=== PATIENT | female | born 1960 | race African-American/Black ===

== ENCOUNTER 2016-10-18 20:21 | Emergency (ER) | payer MEDICARE, MEDICAID ==
[~2016-10-18] VITALS: Ht 160 cm; Wt 88.0 kg
[~2016-10-18 20:21] MED LIST: ALPHAGAN BOTHEYE; AMBIEN PO; CHOL100026 PO; GLIM4TAB2 PO; INSLAN SQ; NOVOLOG SUBCUT; SITA1TAB8 PO; VALS1TAB6 PO; VITA1CAP64 PO
[2016-10-18 20:26] VITALS: BP 150/68
[2016-10-18] MEDS ORDERED: IPRATROPIUM/ALBUTEROL 0.5-3(2.5)MG/3ML NEB HHN ONE (22:45)
[2016-10-19] MEDS ORDERED: PREDNISONE 20MG TABLET PO ONE
== END 2016-10-19 00:26 | disposition home or self-care (01) ==
LOC: ER 20:22
DX: J20.9 Acute bronchitis, unspecified (principal); E11.9 Type 2 diabetes mellitus without complications; I10 Essential (primary) hypertension; M10.9 Gout, unspecified; Z90.710 Acquired absence of both cervix and uterus
CPT/HCPCS: 94640; 99283; J7620

== ENCOUNTER 2017-01-03 14:43 | Inpatient (IN) | payer MEDICARE, MEDICAID ==
[~2017-01-03] VITALS: Ht 160 cm; Wt 91.6 kg
[~2017-01-03 14:43] MED LIST changes: -CHOL100026 PO; +CHOL100044 PO
[2017-01-03] MEDS ORDERED: ONDANSETRON HCL 4MG/2ML VIAL IV STA (15:04)
[2017-01-03] MEDS ORDERED: KETOROLAC 30MG/ML VIAL IV STA (15:04)
[2017-01-03] MEDS ORDERED: ASPIRIN 325MG EC TABLET PO ONE (15:15)
[2017-01-03 15:41] LABS: *AMPHETAMINES SCREEN URINE NEGATIVE (NEGATIVE); *BARBITURATES SCREEN URINE NEGATIVE (NEGATIVE); *BENZODIAZEPINES SCREEN URINE NEGATIVE (NEGATIVE); *COCAINE SCREEN URINE NEGATIVE (NEGATIVE); CANNABINOID URINE SCREEN NEGATIVE (NEGATIVE); METHADONE URINE SCREEN NEGATIVE (NEGATIVE); OPIATES URINE SCREEN NEGATIVE (NEGATIVE); PHENCYCLIDINE URINE SCREEN NEGATIVE (NEGATIVE)
[2017-01-03 15:48] LABS: CHLORIDE 107 mEq/L (98-107)
[2017-01-03 15:49] LABS: INR 1.1; PARTIAL THROMBOPLASTIN TIME 25.1 sec (24.0-34.0); PROTHROMBIN TIME 11.3 sec
[2017-01-03 15:50] LABS: HEMATOCRIT. 34.4 % (36.0-48.0); HEMOGLOBIN. 11.1 g/dL (12.0-16.0); MEAN CORPUSCULAR HEMOGLOBIN 24.3 pg (28.0-32.0); MEAN CORPUSCULAR VOLUME 75.1 fL (81.0-99.0); PLATELET 342 x1000/uL (130-400); RED BLOOD CELL COUNT 4.58 mill/uL (4.2-5.4); RED CELL DISTRIBUTION WIDTH 17.9 % (11.6-14.6)
[2017-01-03 15:53] LABS: CARBON DIOXIDE 28 mEq/L (21-32)
[2017-01-03 15:58] LABS: TROPONIN I < 0.02 ng/mL (0.00-0.04)
[2017-01-03 17:11] LABS: PLATELET ESTIMATE NORMAL
[2017-01-03] MEDS ORDERED: CYCL30DR EACHEYE (20:40)
[2017-01-03] MEDS ORDERED: CLON0.2T PO (20:40)
[2017-01-03] MEDS ORDERED: ATOR20TA PO (20:40)
[2017-01-03] MEDS ORDERED: ASPI-1159 PO (20:40)
[2017-01-03] MEDS ORDERED: PIOG30TA10 PO (20:42)
[2017-01-03] MEDS ORDERED: KETOROLAC 30MG/ML VIAL IV NR (22:00)
[2017-01-03] MEDS ORDERED: IPRATROPIUM/ALBUTEROL 0.5-3(2.5)MG/3ML NEB INH PRN (23:15)
[2017-01-03] MEDS ORDERED: DIPHENHYDRAMINE 50MG/ML VIAL IV PRN (23:15)
[2017-01-03] MEDS ORDERED: MAGNESIUM/ALUMINUM HYDROXIDE/SIMETHICONE 30ML UDC PO PRN (23:15)
[2017-01-03] MEDS ORDERED: DEXTROSE 50% WATER 50ML SYRINGE IV PRN (23:15)
[2017-01-03] MEDS ORDERED: HYDROCODONE/ACETAMINOPHEN 5/325MG TABLET PO PRN (23:15)
[2017-01-03] MEDS ORDERED: CLONIDINE 0.1MG TABLET PO PRN (23:15)
[2017-01-03] MEDS ORDERED: ONDANSETRON HCL 4MG/2ML VIAL IV PRN (23:15)
[2017-01-03] MEDS ORDERED: ACETAMINOPHEN 325MG TABLET PO PRN (23:15)
[2017-01-04] MEDS ORDERED: REGADENOSON 0.4 MG/5 ML IV NR
[2017-01-04] MEDS: SODIUM CHLORIDE 0.9% INJ 3ML FLUSH IVF SCH ×2 (05:35→11:09)
[2017-01-04] MEDS ORDERED: GLIMEPIRIDE 4MG TABLET PO SCH (07:40)
[2017-01-04] MEDS: BLOOD SUGAR DIAGNOSTIC STRIP TEST SCH ×2 (07:40→12:40)
[2017-01-04] MEDS ORDERED: PIOGLITAZONE 30MG TABLET PO SCH (09:00)
[2017-01-04] MEDS ORDERED: ASPIRIN 81MG EC TABLET PO SCH (09:00)
[2017-01-04] MEDS ORDERED: CHOLECALCIFEROL (D3) 1000 UNIT TABLET PO SCH (09:00)
[2017-01-04] MEDS ORDERED: REGADENOSON 0.4 MG/5 ML IV ONE (09:21)
[2017-01-04] MEDS ORDERED: METOPROLOL TARTRATE 25MG TABLET PO SCH (11:00)
[2017-01-04] MEDS: INSULIN LISPRO 100 UNITS/ML SUBCUT SCH ×2 (11:25→13:10)
[2017-01-04 15:04] VITALS: BP 131/74
[2017-01-04] MEDS ORDERED: ATORVASTATIN CALCIUM 20MG TABLET PO SCH (21:00)
== END 2017-01-04 15:32 | disposition home or self-care (01) | DRG 206 ==
LOC: ER 14:44 → 7WST 18:06 → ENRESERV 18:25
PROVIDERS: ADMIT Internal Medicine; ATTEND Internal Medicine
DX: M94.0 Chondrocostal junction syndrome [Tietze] (principal); I10 Essential (primary) hypertension; H40.9 Unspecified glaucoma; E11.9 Type 2 diabetes mellitus without complications; G89.29 Other chronic pain; M54.5 Low back pain; Z90.710 Acquired absence of both cervix and uterus; Z87.11 Personal history of peptic ulcer disease; Z85.9 Personal history of malignant neoplasm, unspecified; Z82.49 Family history of ischemic heart disease and other diseases of the circulatory system; Z79.899 Other long term (current) drug therapy; Z79.4 Long term (current) use of insulin; K29.70 Gastritis, unspecified, without bleeding
CPT/HCPCS: 36415; 71010; 78452; 80053; 80305; 82962; 83036; 83690; 83880; 84484; 85025; 85610; 85730; 93005; 93017; 93306; 96374; 96375; 99285; A9500; J1815; J1885; J2405; J2785

== ENCOUNTER 2018-01-12 21:16 | Emergency (ER) | payer MEDICARE, MEDICAID ==
[~2018-01-12] VITALS: Ht 160 cm; Wt 96.0 kg
[~2018-01-12 21:16] MED LIST changes: +ASPI-1159 PO; +ATOR20TA PO; +CLON0.2T PO; +CYCL30DR EACHEYE; +PIOG30TA10 PO
[2018-01-12] MEDS ORDERED: METHYLPREDNISOLONE SOD SUCC 125 MG/2 ML VIAL IV STA (22:27)
[2018-01-12] MEDS ORDERED: IPRATROPIUM BROMIDE (0.02%) 0.5MG/2.5ML NEB HHN STA (22:27)
[2018-01-12] MEDS ORDERED: ALBUTEROL (0.083%) 2.5MG/3ML NEB HHN STA ×2 (22:27→23:55)
[2018-01-13 01:38] VITALS: BP 110/55
== END 2018-01-13 01:39 | disposition home or self-care (01) ==
LOC: ER 21:16
DX: J45.901 Unspecified asthma with (acute) exacerbation (principal); E11.9 Type 2 diabetes mellitus without complications; I10 Essential (primary) hypertension; Z79.4 Long term (current) use of insulin; Z79.82 Long term (current) use of aspirin
CPT/HCPCS: 71045; 94640; 96374; 99284; J2930; J7611; 99285

== ENCOUNTER 2019-02-06 19:26 | Emergency (ER) | payer MEDICARE, MEDICAID ==
[~2019-02-06] VITALS: Ht 160 cm; Wt 95.0 kg
[~2019-02-06 19:26] MED LIST changes: -ASPI-1159 PO; +ASPI-1393 PO
[2019-02-06] MEDS ORDERED: ACETAMINOPHEN 500MG TABLET PO ONE (23:15)
[2019-02-07 01:52] VITALS: BP 116/72
== END 2019-02-07 01:56 | disposition home or self-care (01) ==
LOC: ER 19:26
DX: M79.675 Pain in left toe(s) (principal); J45.909 Unspecified asthma, uncomplicated; E11.9 Type 2 diabetes mellitus without complications; I10 Essential (primary) hypertension
CPT/HCPCS: 73630; 99283

== ENCOUNTER → 2021-10-03 | Outpatient (CLI) | payer MEDICARE, MEDICAID ==
[~2021-10-03] MED LIST changes: -ASPI-1393 PO; +ASPI-1497 PO; -GLIM4TAB2 PO; +GLIM4TAB36 PO
[2021-10-03 16:39] LABS: BASOPHILS % 0.3 % (0.0-2.0); EOSINOPHILS % 1.3 % (0.0-5.0); HEMATOCRIT. 31.6 % (36.0-48.0); HEMOGLOBIN. 10.1 g/dL (12.0-16.0); LYMPHOCYTES % 30.8 % (20.0-50.0); MEAN CORPUSCULAR HEMOGLOBIN 21.9 pg (28.0-32.0); MEAN CORPUSCULAR VOLUME 68.5 fL (81.0-99.0); MEAN PLATELET VOLUME 7.5 fl (7.4-10.4); MONOCYTES % 6.4 % (2.0-8.0); NEUTROPHILS % 61.2 % (40.0-76.0); PLATELET 462 x1000/uL (130-400); RED BLOOD CELL COUNT 4.61 mill/uL (4.2-5.4); RED CELL DISTRIBUTION WIDTH 19.7 % (11.6-14.6)
[2021-10-03 16:55] LABS: CLARITY URINE CLEAR (CLEAR); COLOR URINE YELLOW (YELLOW); KETONES URINE NEGATIVE (NEGATIVE); LEUKOCYTE ESTERASE URINE NEGATIVE (NEGATIVE); NITRITE URINE NEGATIVE (NEGATIVE); OCCULT BLOOD URINE NEGATIVE (NEGATIVE); PROTEIN URINE NEGATIVE (NEGATIVE); SPECIFIC GRAVITY URINE 1.018 (1.005-1.030)
[2021-10-03 16:58] LABS: CHLORIDE 105 mEq/L (98-107)
[2021-10-03 17:06] LABS: LDL CHOLESTEROL 52 mg/dL (5-100)
[2021-10-03 17:07] LABS: HDL CHOLESTEROL 49 mg/dL (40-59); T4 FREE 1.08 ng/dL (0.76-1.46)
[2021-10-03 17:13] LABS: PLATELET ESTIMATE INCREASED
[2021-10-03 17:17] LABS: *AMPHETAMINES SCREEN URINE NEGATIVE (NEGATIVE); *BARBITURATES SCREEN URINE NEGATIVE (NEGATIVE)
[2021-10-03 17:18] LABS: *BENZODIAZEPINES SCREEN URINE NEGATIVE (NEGATIVE); *COCAINE SCREEN URINE NEGATIVE (NEGATIVE); METHADONE URINE SCREEN NEGATIVE (NEGATIVE); OPIATES URINE SCREEN NEGATIVE (NEGATIVE); PHENCYCLIDINE URINE SCREEN NEGATIVE (NEGATIVE)
[2021-10-03 17:19] LABS: CANNABINOID URINE SCREEN NEGATIVE (NEGATIVE)
== END | disposition home or self-care (01) ==
LOC: LAB 15:31
PROVIDERS: ATTEND Internal Medicine
DX: E11.69 Type 2 diabetes mellitus with other specified complication (principal); I10 Essential (primary) hypertension; G89.4 Chronic pain syndrome
CPT/HCPCS: 36415; 80053; 80061; 80305; 81003; 82043; 82570; 83036; 83970; 84439; 84443; 84481; 85025